=== PATIENT | male | born 2005 | race Caucasian/White ===

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

== ENCOUNTER 2024-09-23 19:45 | Emergency (ER) | payer SELFPAY ==
[2024-09-23 19:47] VITALS: BP 165/117; PULSE 106; RESP 16; TEMP 36.9; O2SAT 97
[2024-09-23 19:53] VITALS: BP 150/90; PULSE 105; O2SAT 97
--- NOTE | 2024-09-23 20:09 | XRR_ITS ---
PROCEDURE INFORMATION: Exam: XR Soft Tissue Neck Exam date and time: 09/23/2024 8:12 PM Age: 19 years old Clinical indication: Throat pain; Additional info: Sore throat, excessive vomiting TECHNIQUE: Imaging protocol: Radiologic exam of the soft tissues of the neck. COMPARISON: CT cervical spin wo con* [id number] 08/04/2023 1:47 AM FINDINGS: Airway: Normal. No abnormal narrowing. Trachea is midline. Soft tissues: Normal. Normal epiglottis. No radiopaque foreign body is seen. Bones/joints: Unremarkable. XR/XR soft tissue neck [id number] IMPRESSION: No acute findings.
[2024-09-23] MEDS: ondansetron 2 mg/ML SDV 2 mL 4 MG IVP (20:19)
[2024-09-23] MEDS: sodium chloride 0.9% 1,000 ML 999 ML IV (20:22)
--- NOTE | 2024-09-23 20:22 | ED_ITS ---
HPI - Nausea/Vomiting/Diarrhea 2 General: Chief complaint: Nausea/Vomiting/Diarrhea Stated complaint: Cant Eat or Drink\Dry Heaving Time Seen by Provider: 09/23/24 19:49 Source: patient Mode of arrival: ambulatory Limitations: no limitations History of Present Illness: Patient is a 19-year-old male with no pertinent past medical history who reports emergency department complaining of nausea and vomiting for the past 2 days. Also reported accompanying sore throat, stating he cannot eat or drink anything without throwing up. Does state that he drinks heavily with frequent binge episodes, was drinking this weekend prior to onset of symptoms. No vomit in his blood but states that when he began vomiting it did appear as coffee-grounds. Denies any sick contacts, chest pain, shortness of breath, abdominal pain, or other symptoms at this time. Has not taken anything for his symptoms. Denies history of marijuana use. No recent exotic foods or beginning any new medications. MD elicited complaint: nausea and vomiting Onset (ago): day(s) Description of vomiting: coffee grounds (resolved) Associated nausea: Yes Associated abdominal pain: No Exacerbating factors: eating (and drinking) Associated symtoms: Reports nausea; Denies chest pain, diaphoresis, dizziness, dysuria, headache(s) or palpitations Related Data Previous Rx's ?Medication ?Instructions ?Recorded naproxen 500 mg tablet 500 mg PO BID PRN pain #20 t abs 02/04/23 tizanidine 4 mg tablet 4 mg PO Q8H PRN muscle spast icity 02/04/23 #15 tabs cephalexin 500 mg capsule 500 mg PO BID 10 days #20 ca ps 09/23/24 ondansetron 4 mg disintegrating 4 mg PO TID PRN nausea and 09/23/24 tablet vomiting #30 tabs Allergies Allergy/AdvReac Type Severity Reaction Status Date / Time amoxicillin Allergy ADR-Itching Verified 09/23/24 19:53 Review of Systems 2 General: Reports: 10 or more systems reviewed and unremarkable except in HPI and below Const: Denies: fever(s), chills, change in appetite, change in weight or diaphoresis ENMT: Reports: throat pain; Denies: hoarseness Card: Denies: chest pain, palpitations or lightheadedness Resp: Denies: dyspnea, productive cough or wheezing GI: Reports: nausea, vomiting and coffee ground emesis; Denies: abdominal pain or diarrhea : Denies: flank pain, difficulty urinating, dysuria, urinary frequency or urinary urgency Musc: Denies: neck pain or back pain Skin/Breast: Denies: rash or new lesions Neuro: Denies: headache(s) or dizziness PFSH ED 2 PFSH: Medical History No significant past medical history Surgical History No significant past surgical history Family History Other Cancer Lung disease Stroke Social History Smoking and tobacco/nicotine status: never used tobacco/nicotine Second hand smoke exposure: No Alcohol intake: former Substance/Drug Use: never Adopted: No Highest education level completed: 10th Grade Current occupational exposures/hazards: No Pets and animals: Yes Do you think of yourself as: Straight/Heterosexual Current gender identity: Male Special michelle needs: No Agree to transfusion: Yes Physical Exam 2 Const: COMMON NORMALS: no acute distress, average body habitus, patient oriented x3, no limitations, healthy appearing, alert and well nourished G ENERAL APPEARANCE: cooperative and comfortable ORIENTATION/CONSCIOUSNESS: Yes awake HENMT: COMMON NORMALS: normocephalic, atraumatic, hearing grossly normal bilaterally, external ears normal, Normal external nose present, Normal nasal mucous membranes and turbinates present and moist oral mucous membranes HEAD & SCALP: normocephalic and atraumatic NOSE: Normal external nose present and Normal nasal mucous membranes and turbinates present EXTERNAL EAR: Yes external ears normal Eye: COMMON NORMALS: Equal, round and reactive pupils present, EOMs intact bilaterally, conjunctivae normal and normal visual faulkner by confrontation C ONJUNCTIVA: Yes conjunctivae normal PUPIL: Yes Equal, round and reactive pupils present Neck/C-Spine: COMMON NORMALS: full ROM, supple, no meningeal signs and no JVD Resp: COMMON NORMALS: normal respiratory effort, No retractions, No use of accessory muscles and clear to auscultation bilaterally AUSCULTATION: clear to auscultation bilaterally, no crackles, no rales, no rhonchi and no wheezes Cardio: COMMON NORMALS: no JVD, regular rate, regular rhythm, S1 normal heart sound present, S2 normal heart sound present, No gallops present (Cardio), No clicks present (Cardio), No murmurs present (Cardio), No rub (Cardio) and Peripheral pulses 2+ throughout RATE: regular rate RHYTHM: regular rhythm HEART SOUNDS: S1 normal heart sound present and S2 normal heart sound present PERIPHERAL PULSES: Peripheral pulses 2+ throughout GI: COMMON NORMALS: Normal to inspection, nondistended, normoactive bowel sounds present, Soft to palpation, non-tender, No hepatosplenomegaly present and no masses AUSCULTATION: Yes normoactive bowel sounds PALPATION: Yes Soft to palpation, No Guarding due to palpation present (GI), No Rigid due to palpation and Yes No hepatosplenomegaly present RECTAL EXAM: Yes deferred Extremity: COMMON NORMALS: normal to inspection and full ROM Neuro: COMMON NORMALS: patient oriented x3, moves all extremities, no focal motor deficits and no sensory deficits noted SENSORIUM/ORIENTATION: Yes alert MENINGEAL SIGNS: Yes no meningeal signs Psych: COMMON NORMALS: mental status grossly normal, cooperative and speech normal SPEECH: Yes normal speech Skin: COMMON NORMALS: no rashes or lesions noted GENERAL SKIN EXAM: no rashes or lesions noted Course 2 Vital Signs: Vital signs: Vital Signs Temperature 98.5 F 09/23/24 19:47 Pulse Rate 89 09/23/24 21:00 Respiratory Rate 16 09/23/24 19:47 Blood Pressure 138/97 09/23/24 21:00 Pulse Oximetry 98 09/23/24 21:00 Oxygen Delivery Me thod Room Air 09/23/24 20:37 MDM - Nausea/Vomiting/Diarrhea Medical Decision Making Patient presented with sore throat for past couple of days, however had associated nausea and vomiting. Exam was unremarkable. Patient is a binge drinker, alcohol negative here. Wanted to rule out emergent causes of sore throat associated with forceful vomiting, such as Boerhaave's, this was negative as soft tissue neck x-ray was negative. His lab work unremarkable other than his strep swab being positive. [place] negative. Will treat with Keflex as he is allergic to penicillins, Zofran prescribed for nausea. Discharged in stable condition. Lab Data 09/23/24 20:02 09/23/24 20:02 Radiology Impressions Soft Tissue Neck X-Ray 09/23/24 20:09 IMPRESSION: No acute findings. Laboratory Results WBC 11.89 10^3/uL (4.5-13.0) 09/23/24 20:02 RBC 5.30 10^6/uL (3.85-5.65) 09/23/24 20:02 Hgb 16.20 g/dL (13.2-15.6) H 09/23/24 20:02 Hct 45.2 % (37-53) 09/23/24: MCV 85.3 fl (82-101) 09/23/24: MCH 30.6 pg (27-33) 09/23/24: MCHC 35.8 g/dL (30-55) 09/23/24 20: RDW 11.6 % (12.1-15.1) L 09/23/24 20: Plt Count 302 10^3/cmm (157-399) 09/23/24: MPV 9.6 fL (7.4-10.4) 09/23/24 20: Neut % (Auto) 79.9 % 09/23/24: Lymph % (Auto) 9.3 % 09/23/24: [place] % (Auto) 7.7 % 09/23/24: Eos % (Auto) 2.2 % 09/23/24: Baso % (Auto) 0.6 % 09/23/24: Neut # (Auto) 9.51 10^3/uL (1.8-8.0) H 09/23/24 20: Lymph # (Auto) 1.1 10^3/uL (1.5-6.5) L 09/23/24: [place] # (Auto) 0.9 10^3/uL (0.2-0.9) 09/23/24 20: Eos # (Auto) 0.3 10^3/uL (0.0-0.8) 09/23/24 20: Baso # (Auto) 0.1 10^3/uL (0.0-0.1) 09/23/24 20: Nucleated RBC % (auto) 0 % 09/23/24 20: Nucleated RBCs # 0.0 /100WBC 09/23/24 20:02 Sodium 137 mmol/L (136-145) 09/23/24 20: Potassium 3.7 mmol/L (3.5-5.1) 09/23/24 20: Chloride 98 mmol/L (98-107) 09/23/24 20: Carbon Dioxide 24 mmol/L (22-29) 09/23/24 20: Anion Gap 18.7 (5-19) 09/23/24 20: BUN 11 mg/dL (6-20) 09/23/24 20: Creatinine 0.8 mg/dL (0.7-1.2) 09/23/24 20: GFR Calculation 123.2 mL/min (90-130) 09/23/24 20: Glucose 133 mg/dL (65-115) H 09/23/24 20: Calculated Osmolality 285 mOsm/kg (285-295) 09/23/24 20: Calcium 9.9 mg/dL (8.5-10.5) 09/23/24 20: Total Bilirubin 3.5 mg/dL (0.15-1.2) H 09/23/24 20: AST 25 U/L (0-40) 09/23/24 20: ALT 49 U/L (0-41) H 09/23/24 20: Alkaline Phosphatase 64 U/L (40-130) 09/23/24 20: Total Protein 8.7 g/dL (6.6-8.7) 09/23/24 20: Albumin 5.0 g/dL (3.5-5.2) 09/23/24 20: Globulin 3.7 g/dL (1.3-4.6) 09/23/24 20: Lipase 15 U/L (13-60) 09/23/24 20: Urine Color [place] (Yellow) A 09/23/24 20: Urine Appearance Clear (CLEAR) 09/23/24 20: Urine pH 5.5 (5-7) 09/23/24 20: Ur Specific [place] 1.036 (1.005-1.030) H 09/23/24 20: Urine Protein 1+ (Negative) A 09/23/24 20:02 Urine Glucose (UA) Negative (Normal) 09/23/24 20:02 Urine Ketones 2+ (Negative) H 09/23/24 20:02 Urine Blood Negative (Negative) 09/23/24 20:02 Urine Nitrate Negative (Negative) 09/23/24 20:02 Urine Bilirubin 2+ (Negative) H 09/23/24 20:02 Urine Urobilinogen 1.0 mg/dL (Negative) 09/23/24 20:02 Ur Leukocyte Esterase Trace (Negative) A 09/23/24 20:02 Urine RBC 3-5 /hpf (0-2) 09/23/24 20:02 Urine WBC 0-5 /hpf (0-5) 09/23/24 20:02 Ur Squamous Epith Cells 0-5 /hpf (0-5) 09/23/24 20:02 Amorphous Sediment Not Reportable 09/23/24 20:02 Urine Bacteria None seen /hpf (NONE) 09/23/24 20: Hyaline Casts 2.87 /lpf 09/23/24 20:02 Ethyl Alcohol < 10 mg/dL (0-10) 09/23/24 20:02 Monoscreen Negative (Negative) 09/23/24 20:02 Group A Strep Rapid Positive (Negative) H 09/23/24 20:22 All radiology interpretation(s) finalized by discharge Discharge Plan Discharge Patient Disposition: Home Clinical Impression: Strep pharyngitis Condition: Stable Prescriptions: New cephalexin 500 mg capsule 500 mg PO BID 10 Days Qty: 20 0RF ondansetron 4 mg tablet,disintegrating 4 mg PO TID PRN (Reason: nausea and vomiting) Qty: 30 0RF No Action tizanidine 4 mg tablet 4 mg PO Q8H PRN (Reason: muscle spasticity) Qty: 15 0RF naproxen 500 mg tablet 500 mg PO BID PRN (Reason: pain) Qty: 20 0RF Discharge Orders: Discharge ED (Routine); Ordered 09/23/24 Ordered By: Tushar Mccray Referrals: Zara Tavera MD [Primary Care Provider] - Patient Instructions: Strep Throat (ED) Activity Restrictions/Additional Instructions: Keflex as prescribed. Tylenol/ibuprofen. Zofran for nausea. Drink plenty fluids. Follow-up with regular doctor. Print Language: Spanish Coding Level of Care Code ED Data Entry Technician for Noman [employer]
[2024-09-23 20:27] LABS: Basophils # 0.1 10^3/uL (0.0-0.1); Basophils % 0.6 %; Eosinophils # 0.3 10^3/uL (0.0-0.8); Eosinophils % 2.2 %; Hematocrit 45.2 % (37-53); Lymphocytes # 1.1 10^3/uL (1.5-6.5); Lymphocytes % 9.3 %; Mean Corpuscular HGB Conc 35.8 g/dL (30-55); Mean Corpuscular Hemoglobin 30.6 pg (27-33); Mean Corpuscular Volume 85.3 fl (82-101); Mean Platelet Volume 9.6 fL (7.4-10.4); Monocytes # 0.9 10^3/uL (0.2-0.9); Monocytes % 7.7 %; Neutrophils # 9.51 10^3/uL (1.8-8.0); Neutrophils % 79.9 %; Nucleated Red Blood Cells % 0 %; Platelet Count 302 10^3/cmm (157-399); Red Cell Distribution Width 11.6 % (12.1-15.1); White Blood Count 11.89 10^3/uL (4.5-13.0)
[2024-09-23 20:37] VITALS: BP 125/95; PULSE 99; O2SAT 100
[2024-09-23 20:39] LABS: Bilirubin Urine 2+ (Negative); Blood Urine Negative (Negative); Glucose Urine UA Negative (Normal); Ketones Urine 2+ (Negative); Leukocyte Esterase Urine Trace (Negative); Protein Urine 1+ (Negative); Urine Appearance Clear (CLEAR); pH Urine 5.5 (5-7)
[2024-09-23 20:44] LABS: Add Urine Microscopic? YES; Bacteria Urine None Seen /hpf; Hyaline Casts Urine 2.87 /lpf; Squamous Epithelial Cell Urine 0-5 /hpf (0-5); WBC Urine 0-5 /hpf (0-5)
[2024-09-23 20:49] LABS: Alanine Aminotransferase 49 U/L (0-41); Alkaline Phosphatase 64 U/L (40-130); Anion Gap 18.7 (5-19); Aspartate Amino Transferase 25 U/L (0-40); Blood Urea Nitrogen 11 mg/dL (6-20); Calcium 9.9 mg/dL (8.5-10.5); Carbon Dioxide 24 mmol/L (22-29); Chloride 98 mmol/L (98-107); Creatinine Clr Calc Pharmacy 192.5633; Globulin 3.7 g/dL (1.3-4.6); Glomerular Filtration Rate 123.2 mL/min (90-130); Glucose 133 mg/dL (65-115); Lipase 15 U/L (13-60); Osmolality Calculated 285 mOsm/kg (285-295); Potassium 3.7 mmol/L (3.5-5.1); Sodium 137 mmol/L (136-145); Total Bilirubin 3.5 mg/dL (0.15-1.2); Total Protein 8.7 g/dL (6.6-8.7)
[2024-09-23 20:50] LABS: Alcohol Level < 10 mg/dL (0-10)
[2024-09-23 20:52] LABS: Rapid Strep A Test Positive (Negative)
[2024-09-23 20:52] LABS: Monoscreen Negative (Negative)
[2024-09-23 21:00] VITALS: BP 138/97; PULSE 89; O2SAT 98
[2024-09-23 21:00] LABS: Nitrate Urine Negative (Negative); Specific Gravity, Urine 1.036 (1.005-1.030); UA Slide Review UA Slide Review Perf; Urine Color Orange (Yellow)
[2024-09-23 21:21] VITALS: BP 142/100; PULSE 100; O2SAT 96
== END 2024-09-23 21:22 | disposition home or self-care (01) ==
PROVIDERS: Emergency Provider Physician Assistant; PCP Pediatrics Adolescent Medicine
DX: J02.0 Streptococcal pharyngitis (principal)
CPT/HCPCS: 36415; 70360; 80053; 80307; 81001; 83690; 85025; 86308; 87880; 96374; 99284; J2405; J7030